=== PATIENT | male | born 1985 | race Two or more races ===

== ENCOUNTER 2017-03-30 18:41 | Inpatient (IN) | payer SELFPAY ==
[~2017-03-30] VITALS: Ht 172.7 cm; Wt 94.6 kg
[2017-03-30 20:07] LABS: Basophils # (auto) 0 uL; Basophils % (auto) 0.2 % (0.0-2.0); Eosinophils # (auto) 0 uL; Eosinophils % (auto) 0.1 % (0.0-7.0); Hematocrit 48.9 % (41.0-53.0); Hemoglobin 16.3 g/dL (13.5-17.5); Lymphocytes # (auto) 2.5 uL; Lymphocytes % (auto) 14.6 % (10.0-50.0); Mean Corpuscular Hemoglobin 27.9 pg (28.0-32.0); Mean Corpuscular Hgb Conc. 33.4 g/dL (32.0-36.0); Mean Corpuscular Volume 83.5 fL (80.0-100.0); Mean Platelet Volume 10.4 fL (7.4-10.4); Monocytes # (auto) 0.8 uL; Monocytes % (auto) 4.4 % (0.0-12.0); Neutrophils # (auto) 13.7 uL; Neutrophils % (auto) 80.7 % (37.0-80.0); Platelet Count (auto) 240 10^3/uL (140-450); Red Cell Distribution Width 12.6 % (11.6-16.0)
[2017-03-30 20:13] LABS: Urine Bilirubin Negative (Negative); Urine Blood Negative /uL (Negative); Urine Color Yellow (Yellow); Urine Mucus FEW (None Seen); Urine Nitrite Negative (Negative); Urine RBC 1 /hpf (0 - 3); Urine pH 7.5 (5.0-8.0)
[2017-03-30 20:15] LABS: Albumin 4.4 g/dL (3.4-5.0); BUN/Creatinine Ratio 10.3; Bilirubin, Total 1.5 mg/dL (0.2-1.0); Calcium 9.4 mg/dL (8.5-10.1); Potassium 3.5 mmol/L (3.5-5.1)
[2017-03-30 20:19] LABS: Urine Glucose 4+ mg/dL (Normal); Urine Ketone 3+ (Negative)
[2017-03-30] MEDS ORDERED: ONDANSETRON HCL 4 MG/2 ML VIAL IV ONE (21:15)
[2017-03-30] MEDS ORDERED: LEVOFLOXACIN 750MG 150 ML IV ONE (21:15)
[2017-03-30] MEDS ORDERED: metroNIDAZOLE 500MG/100ML 100 ML IV ONE (21:15)
[2017-03-30] MEDS ORDERED: SODIUM CHLORIDE 0.9% 1,000 ML IV ONE (21:15)
[2017-03-30] MEDS ORDERED: HYDROmorphone HCL 2 MG/ML VL IV ONE (21:15)
[2017-03-31] MEDS: SODIUM CHLORIDE 0.9% 1,000 ML IV SCH ×2 (00:24→11:25)
[2017-03-31] MEDS ORDERED: ONDANSETRON HCL 4 MG/2 ML VIAL IV PRN (00:30)
[2017-03-31] MEDS ORDERED: TEMAZEPAM 15 MG CAP PO PRN (00:30)
[2017-03-31] MEDS ORDERED: ACETAMINOPHEN 325 MG TAB PO PRN (00:30)
[2017-03-31] MEDS ORDERED: PANTOPRAZOLE SODIUM 40 MG/10 ML VIAL IV ONE (00:30)
[2017-03-31] MEDS ORDERED: MORPHINE SULF INJ 2 MG/ML SYRINGE 1ML IV PRN (00:30)
[2017-03-31] MEDS ORDERED: DEXTROSE (50%) 50ML SYRG IV PRN (00:30)
[2017-03-31] MEDS ORDERED: MORPHINE SULF INJ 2 MG/ML SYRINGE 1ML ONE (00:57)
[2017-03-31 03:52] LABS: INR 1.04 (0.9-1.15); Partial Thromboplastin Time 27.3 sec (22.64-33.71); Prothrombin Time 11.2 sec (9.37-12.3)
[2017-03-31] MEDS: InsuLIN REG 1unit/0.01ml Soln (100units/ml) SC SCH ×4 (04:09→21:23)
[2017-03-31] MEDS: ACCU-CHEK COMFORT CURVE STRIP VI SCH ×4 (04:10→21:23)
[2017-03-31] MEDS: metroNIDAZOLE 500MG/100ML 100 ML IV SCH ×3 (04:53→21:10)
[2017-03-31 05:49] VITALS: BP 148/97
[2017-03-31 08:00] VITALS: BP 131/73
[2017-03-31] MEDS: PANTOPRAZOLE SODIUM 40 MG/10 ML VIAL IV SCH (09:38)
[2017-03-31 12:23] VITALS: BP 149/75
[2017-03-31] MEDS ORDERED: GLYCOPYRROLATE 0.2 MG/ML 1ML VIAL IV ONE (13:09)
[2017-03-31] MEDS ORDERED: NEOSTIGMINE 1 MG/ML INJ (10mg/10ML VIAL) IV ONE (13:09)
[2017-03-31] MEDS ORDERED: MIDAZOLAM HCL 1MG/1ML-2 ML VIAL ONE (13:11)
[2017-03-31] MEDS ORDERED: fentaNYL CITRATE 100 MCG/2 ML VL ONE ×3 (13:11→14:28)
[2017-03-31] MEDS ORDERED: ROCURONIUM 10MG/ML 10ML VIAL IV ONE (13:11)
[2017-03-31] MEDS ORDERED: PROPOFOL 10 MG/ML 20 ML IV ONE (13:12)
[2017-03-31] MEDS ORDERED: ONDANSETRON HCL 4 MG/2 ML VIAL IV ONE (14:45)
[2017-03-31] MEDS ORDERED: hydrALAZINE HCL 20 MG/ML VL IV PRN (14:45)
[2017-03-31] MEDS ORDERED: ePHEDrine SULFATE 50 MG/ML AMP IV PRN (14:45)
[2017-03-31] MEDS ORDERED: HYDROmorphone HCL 2 MG/ML VL IV PRN (14:45)
[2017-03-31 16:28] VITALS: BP 151/98
[2017-03-31] MEDS: HYDROcodone-ACET 5/325MG TAB PO PRN (21:22)
[2017-03-31 22:07] VITALS: BP 123/82
[2017-03-31] MEDS: LEVOFLOXACIN 750MG 150 ML IV SCH (23:06)
[2017-04-01] MEDS: SODIUM CHLORIDE 0.9% 1,000 ML IV SCH ×2 (01:24→14:17)
[2017-04-01 05:33] VITALS: BP 130/73
[2017-04-01] MEDS: metroNIDAZOLE 500MG/100ML 100 ML IV SCH ×3 (05:38→22:27)
[2017-04-01] MEDS: ACCU-CHEK COMFORT CURVE STRIP VI SCH ×4 (05:38→22:27)
[2017-04-01] MEDS: InsuLIN REG 1unit/0.01ml Soln (100units/ml) SC SCH ×4 (05:39→22:27)
[2017-04-01] MEDS: HYDROcodone-ACET 5/325MG TAB PO PRN (05:39)
[2017-04-01 06:04] LABS: Basophils # (auto) 0 uL; Basophils % (auto) 0.3 % (0.0-2.0); Eosinophils # (auto) 0.1 uL; Eosinophils % (auto) 0.5 % (0.0-7.0); Hematocrit 42.4 % (41.0-53.0); Hemoglobin 14.2 g/dL (13.5-17.5); Lymphocytes # (auto) 2.7 uL; Lymphocytes % (auto) 26.3 % (10.0-50.0); Mean Corpuscular Hemoglobin 28.4 pg (28.0-32.0); Mean Corpuscular Hgb Conc. 33.6 g/dL (32.0-36.0); Mean Corpuscular Volume 84.7 fL (80.0-100.0); Monocytes # (auto) 0.7 uL; Monocytes % (auto) 6.6 % (0.0-12.0); Neutrophils # (auto) 6.9 uL; Neutrophils % (auto) 66.3 % (37.0-80.0); Platelet Count (auto) 199 10^3/uL (140-450); Red Cell Distribution Width 12.8 % (11.6-16.0); White Blood Cell 10.4 10^3/uL (4.4-10.8)
[2017-04-01 06:22] LABS: Calcium 8.4 mg/dL (8.5-10.1); Potassium 3.6 mmol/L (3.5-5.1)
[2017-04-01 06:24] LABS: BUN/Creatinine Ratio 10.1
[2017-04-01 06:34] LABS: Bilirubin, Total 0.9 mg/dL (0.2-1.0); Total Protein 7.3 g/dL (6.4-8.2)
[2017-04-01 09:07] VITALS: BP 135/73
[2017-04-01] MEDS: PANTOPRAZOLE SODIUM 40 MG/10 ML VIAL IV SCH (10:13)
[2017-04-01 14:31] VITALS: BP 138/75
[2017-04-01 16:17] VITALS: BP 136/72
[2017-04-01 22:00] VITALS: BP 152/82
[2017-04-01] MEDS: LEVOFLOXACIN 750MG 150 ML IV SCH (23:30)
[2017-04-02] MEDS ORDERED: SODIUM CHLORIDE 0.9% 1,000 ML IV SCH (00:24)
[2017-04-02 05:00] VITALS: BP 137/84
[2017-04-02] MEDS: metroNIDAZOLE 500MG/100ML 100 ML IV SCH ×2 (06:00→14:00)
[2017-04-02] MEDS: InsuLIN REG 1unit/0.01ml Soln (100units/ml) SC SCH ×2 (06:00→11:49)
[2017-04-02] MEDS: ACCU-CHEK COMFORT CURVE STRIP VI SCH ×2 (06:00→11:49)
[2017-04-02 09:23] VITALS: BP 149/77
[2017-04-02] MEDS: PANTOPRAZOLE SODIUM 40 MG/10 ML VIAL IV SCH (09:45)
[2017-04-02] MEDS ORDERED: METR500T PO (10:51)
[2017-04-02] MEDS ORDERED: LEVO500T3 PO (10:51)
[2017-04-02] MEDS ORDERED: METF-316 PO (10:51)
[2017-04-02 11:54] VITALS: BP 149/77
[2017-04-02 12:07] VITALS: BP 149/77
== END 2017-04-02 12:55 | disposition home or self-care (01) | DRG 853 ==
LOC: ER 18:47 → OVERFLOW 18:48 → WEST WING 03-31 00:56
PROVIDERS: ADMIT Nurse Practitioner; ATTEND Internal Medicine
PROC: 0W9G4ZZ Drainage of Peritoneal Cavity, Percutaneous Endoscopic Approach (ICD-10-PCS; 2017-03-31)
PROC: 0DTJ4ZZ Resection of Appendix, Percutaneous Endoscopic Approach (ICD-10-PCS; principal; 2017-03-31 13:09)
DX: A41.9 Sepsis, unspecified organism (principal); K35.3 Acute appendicitis with localized peritonitis; E11.65 Type 2 diabetes mellitus with hyperglycemia; E66.9 Obesity, unspecified; I10 Essential (primary) hypertension; K76.0 Fatty (change of) liver, not elsewhere classified; Z68.29 Body mass index [BMI] 29.0-29.9, adult
CPT/HCPCS: 36415; 71010; 74176; 80053; 81001; 82962; 83036; 85025; 85610; 85730; 86850; 86900; 86901; 96365; 96366; 96368; 96375; C9113; J1815; J1956; J2250; J2405; J2704; J3490